=== PATIENT | male | born 1965 ===

== ENCOUNTER 2017-01-16 15:48 | Emergency (ER) | payer MEDICAID, OTHER ==
[2017-01-16 15:48] VITALS: BMI 25.4
[2017-01-16] MEDS ORDERED: Albuterol-Ipratrop 3 mg / 0.5 (3 ml) UD ONE ×3 (16:01→17:16)
[2017-01-16] MEDS ORDERED: Albuterol-Ipratrop 3 mg / 0.5 (3 ml) UD INH STA ×3 (16:25→17:02)
[2017-01-16] MEDS ORDERED: Sodium Chloride 0.9% 1,000 ML IV ONE (16:36)
--- NOTE | 2017-01-16 16:37 | C.PDOC ---
History Of Present Illness A 51 year old male presents to the ER c/o SOB, cough that started 3 weeks ago. Patient notes that the cough is intermittent and produces clear phleam. Patient also reports left sided abdominal pain and this is the first time reporting the pain. Patient denies fever, chills, chest pain, nausea, vomiting, or any other complaints. Time Seen by Provider: 01/16/17 16:03 Chief Complaint (Nursing): Shortness Of Breath History Per: Patient History/Exam Limitations: no limitations Onset/Duration Of Symptoms: Days Current Symptoms Are (Timing): Still Present Severity: Mild Past Medical History Vital Signs: Last Vital Signs Temp 98.2 F 01/16/17 16:09 Pulse 70 01/16/17 16:09 Resp 20 01/16/17 16:09 BP 119/79 01/16/17 16:09 Pulse Ox 99 01/16/17 16:09 - Medical History PMH: Asthma Family History: States: Unknown Family Hx - Social History Hx Tobacco Use: Yes Hx Alcohol Use: Yes Hx Substance Use: No - Immunization History Hx Tetanus Toxoid Vaccination: No Hx Influenza Vaccination: No Hx Pneumococcal Vaccination: No ED Course And Treatment O2 Sat by Pulse Oximetry: 99
--- NOTE | 2017-01-16 16:40 | C.PDOC ---
History Of Present Illness Patient is a 51 year old male presents to the ER c/o SOB, cough that started 3 weeks ago. Patient notes that the cough is intermittent and produces clear phlegm. Patient also reports left sided abdominal pain (LUQ) at times, but not right now. Patient denies fever, chills, chest pain, nausea, vomiting, or any other complaints. Pt has not tried any cough medicine for his symptoms. Pt does smoke cigarettes. Time Seen by Provider: 01/16/17 16:03 Chief Complaint (Nursing): Shortness Of Breath History Per: Patient History/Exam Limitations: language barrier (Gale Renee--interpretor #) Onset/Duration Of Symptoms: Days Current Symptoms Are (Timing): Still Present Initiating Event: Other (SOB) Severity: Mild Associated Symptoms: Productive Cough. denies: Fever, Chills Recent travel outside of the [place] States: No Additional History Per: Patient Past Medical History Reviewed: Historical Data, Nursing Documentation, Vital Signs Vital Signs: Last Vital Signs Temp 97.8 F 01/16/17 18:55 Pulse 82 01/16/17 18:55 Resp 19 01/16/17 18:55 BP 109/79 01/16/17 18:55 Pulse Ox 99 01/20/17 09:20 - Medical History PMH: Asthma Family History: States: Diabetes - Social History Hx Tobacco Use: Yes Hx Alcohol Use: Yes Hx Substance Use: No - Immunization History Hx Tetanus Toxoid Vaccination: No Hx Influenza Vaccination: No Hx Pneumococcal Vaccination: No Review Of Systems Except As Marked, All Systems Reviewed And Found Negative. Constitutional: Negative for: Fever, Chills Cardiovascular: Negative for: Chest Pain Respiratory: Positive for: Cough, Shortness of Breath Gastrointestinal: Positive for: Abdominal Pain. Negative for: Nausea, Vomiting Physical Exam - Physical Exam Appears: Non-toxic, No Acute Distress Skin: Warm, Dry Head: Atraumatic, Normacephalic Eye(s): bilateral: Normal Inspection, EOMI Ear(s): Bilateral: Normal Nose: Normal Oral Mucosa: Moist Tongue: Normal Appearing Lips: Normal Appearing Teeth: Normal Dentition Throat: Normal Neck: Normal Lymphatic: Deferred Chest: Symmetrical Cardiovascular: Rhythm Regular, No Murmur Respiratory: Wheezing (Bilateral expiratory whezing) Gastrointestinal/Abdominal: Bowel Sounds (Normal), Soft, No Tenderness, No Guarding, No Rebound Extremity: Normal ROM Extremity: Bilateral: Atraumatic, Normal ROM Neurological/Psych: Oriented x3, Normal Speech, Normal Cognition ED Course And Treatment - Laboratory Results Result Diagrams: 01/16/17 16:48 01/16/17 16:48 O2 Sat by Pulse Oximetry: 99 (Nebulizer treatment) Pulse Ox Interpretation: Normal Medical Decision Making Medical Decision Making: Impression: Asthma exacerbation Plans: -Albuterol -PredniSONE -IV fluids -Nebulizer treatment -UA -Reassess and disposition 5:30 PM On reassessment patient wheezing is starting to improve via nebulizer treatment. 6:30 PM Wheezing is gone. Pt feels much better. Disposition - Disposition Referrals: Douglas Murphy DO [Staff Provider] - Disposition: HOME/ ROUTINE Disposition Time: 18:29 Condition: GOOD Additional Instructions: Mr. Bourne, thank you for letting us take care of you today. Return to the ER if your symptoms worsen, or if any problems. Take the medication listed below as prescribed. Follow up with Dr. Douglas Murphy next week for a re-evaluation. Please quit smoking. Prescriptions: Albuterol HFA [Ventolin HFA 90 mcg/actuation (8 g)] 2 puff IH [id number] PRN #1 inhaler PRN Reason: Wheezing Fexofenadine HCl [EstefaniNf] 1 tab PO DAILY #14 tab Ketotifen Fumarate [Zaditor] 1 drop OU BID #5 ml Montelukast [Singulair] 1 tab PO DAILY #30 tab Prednisone [Deltasone] 1 tab PO Q8 #15 tablet Instructions: Asthma (ED), How to Stop Smoking (ED), Allergies (ED), Wheezing ( ED) Forms: Gen Discharge Inst Venezuelan, [facility] (Venezuelan) Print Language: SERBIAN - POA Present On Arrival: None - Clinical Impression Clinical Impression: Bronchitis, Asthma exacerbation, Seasonal allergies - Scribe Statement The provider has reviewed the documentation as recorded by the Scribe Rhiannon reyes All medical record entries made by the Scribe were at my direction and personally dictated by me. I have reviewed the chart and agree that the record accurately reflects my personal performance of the history, physical exam, medical decision making, and the department course for this patient. I have also personally directed, reviewed, and agree with the discharge instructions and disposition.
--- NOTE | 2017-01-16 16:52 | RAD ---
HISTORY: c/o cough and SOB COMPARISON: 12/06/2015 FINDINGS: LUNGS: No active pulmonary disease. PLEURA: No significant pleural effusion identified, no pneumothorax apparent. CARDIOVASCULAR: Normal. OSSEOUS STRUCTURES: Thoracic spondylosis VISUALIZED UPPER ABDOMEN: Normal. OTHER FINDINGS: None. IMPRESSION: No active disease. No interval change perceived
[2017-01-16] MEDS ORDERED: Sodium Chloride 0.9% 1,000 ML ONE (16:56)
[2017-01-16 16:59] LABS: POTASSIUM 4.3 mmol/L (3.6-5.2); SODIUM 137 mmol/L (132-148)
[2017-01-16 17:01] LABS: AST/SGOT 38 U/L (17-59); BILIRUBIN,TOTAL 0.6 mg/dL (0.2-1.3); CARBON DIOXIDE 28 mmol/L (22-30); GFR AFRICAN-AMERICAN > 60
[2017-01-16 17:02] LABS: ALB/GLOB RATIO 1.5 (1.0-2.1); ALKALINE PHOSPHATASE 64 U/L (38-126); ALT/SGPT 44 U/L (21-72); BLOOD UREA NITROGEN 18 mg/dL (9-20); CALCIUM 8.6 mg/dl (8.6-10.4); GLUCOSE,RANDOM 102 mg/dL (75-110); TOTAL PROTEIN 7.1 g/dL (6.3-8.3)
[2017-01-16 17:12] LABS: BASO # 0.1 K/uL (0.0-0.2); BASO % 0.9 % (0.0-2.0); EOS # 0.7 K/uL (0.0-0.7); EOS % 7.2 % (0.0-4.0); HEMATOCRIT 43.2 % (35.0-51.0); LYMPH # 3.1 K/uL (1.0-4.3); LYMPH % 33.5 % (20.0-40.0); MEAN CELL VOLUME 87.2 fL (80.0-94.0); MEAN CORPUSCULAR HEMOGLOBIN 29.1 pg (27.0-31.0); MEAN CORPUSCULAR HGB CONC 33.4 g/dL (33.0-37.0); MEAN PLATELET VOLUME 9.6 fL (7.2-11.7); MONO # 0.9 K/uL (0.0-0.8); MONO % 9.8 % (0.0-10.0); RED CELL DISTRIBUTION WIDTH 12.9 % (11.5-14.5); WHITE BLOOD COUNT 9.3 K/uL (4.8-10.8)
[2017-01-16 18:15] LABS: URINE BILIRUBIN NEGATIVE (NEGATIVE); URINE BLOOD NEGATIVE (NEGATIVE); URINE COLOR Yellow (YELLOW); URINE GLUCOSE (UA) NORMAL (Normal); URINE KETONE NEGATIVE (NEGATIVE); URINE LEUKOCYTE ESTERASE NEG Leu/uL (Negative); URINE PROTEIN NEGATIVE (NEGATIVE); URINE UROBILINOGEN NORMAL mg/dL (0.2-1.0); WBC URINE < 1 /hpf (0-5)
[2017-01-16 18:57] VITALS: BP 109/79; PULSE 82; RESP 19; TEMP 97.8
[2017-01-17 17:30] LABS: CHLORIDE 100 mmol/L (98-107)
[2017-01-20 09:20] VITALS: O2SAT 99
== END 2017-01-16 18:50 | disposition home or self-care (01) ==
LOC: C.ER 15:48
DX: J45.901 Unspecified asthma with (acute) exacerbation (principal)
CPT/HCPCS: 71010; 80053; 81001; 83690; 85025; 94150; 94640; 96374; 99285; J7040

== ENCOUNTER 2017-07-09 09:47 | Emergency (ER) | payer OTHER ==
[2017-07-09 09:48] VITALS: BMI 25.4
[2017-07-09 09:54] VITALS: RESP 20; TEMP 98; O2SAT 97
--- NOTE | 2017-07-09 10:20 | C.PDOC ---
History Of Present Illness 52 y/o male presents to ED with c/o itchy rash to whole body, worse on extremities, for about 3 weeks. Patient states he was recently living with a friend (> 1 month ago) and believes there may have been bedbugs. Notes he has been living in a new apartment for the last month. Notes using OTC anti- histamine w/ no relief. Patient denies sensation of throat closing up, chest pain, SOB, fever. Time Seen by Provider: 07/09/17 09:55 Chief Complaint (Nursing): Allergic Reaction History Per: Patient History/Exam Limitations: no limitations Onset/Duration Of Symptoms: Days Current Symptoms Are (Timing): Still Present Quality Of Symptoms: Itching. denies: Draining Severity: Moderate Recent travel outside of the [place]: No Past Medical History Reviewed: Historical Data, Nursing Documentation, Vital Signs Vital Signs: Last Vital Signs Temp 98 F 07/09/17 09:53 Pulse 88 07/09/17 10:25 Resp 20 07/09/17 09:53 BP 122/80 07/09/17 10:25 Pulse Ox 97 07/09/17 10:54 - Medical History PMH: Asthma Family History: States: Diabetes - Social History Hx Tobacco Use: Yes Hx Alcohol Use: Yes Hx Substance Use: No - Immunization History Hx Tetanus Toxoid Vaccination: No Hx Influenza Vaccination: No Hx Pneumococcal Vaccination: No Review Of Systems Except As Marked, All Systems Reviewed And Found Negative. Constitutional: Negative for: Fever, Chills ENT: Negative for: Throat Pain Respiratory: Negative for: Cough, Shortness of Breath Skin: Positive for: Rash Neurological: Negative for: Headache Physical Exam - Physical Exam Appears: Well, Non-toxic, Other (uncomfortable, actively scratching) Skin: Warm, Dry, Rash (scattered urticarial rash to extremities; maculopapular scattered rash, diffuse, nonvesicular, sparing palms and soles), Other (no burrows in interdigitary webs or anywhere else) Head: Normacephalic Oral Mucosa: Moist Tongue: Normal Appearing, No Swelling Lips: Normal Appearing, No Swelling Throat: Normal, No Erythema, No Exudate, No Drooling Cardiovascular: Rhythm Regular Respiratory: Normal Breath Sounds, No Rales, No Rhonchi, No Wheezing Extremity: Normal ROM Neurological/Psych: Oriented x3 ED Course And Treatment O2 Sat by Pulse Oximetry: 97 (RA) Pulse Ox Interpretation: Normal Progress Note: Patient given PO Prednisone, Benadryl in ED, as well as Rx for same + permethrin cream. Patient instructed to wash all linens in hot water. He was instructed to follow up with PMD /clinic in 1-2 days. He understands he should return to ED if symptoms worsen. Reevaluation Time: 10:20 Reassessment Condition: Improved Disposition Counseled Patient/Family Regarding: Studies Performed, Diagnosis, Need For Followup, Rx Given - Disposition Referrals: [facility] [Outside] Disposition: HOME/ ROUTINE Disposition Time: 10:20 Condition: STABLE Additional Instructions: SEGUIMIENTO CON GIL MDICO / CLNICA EN 1-2 BLAKELY USE MEDICAMENTOS SEGN LO INDICADO [place] REGRESE AL MAGALI DE EMERGENCIA SI LOS SNTOMAS EMPEORAN Prescriptions: DiphenhydrAMINE [Benadryl] 25 mg PO Q6 PRN #20 cap PRN Reason: Itching / Pruritus Permethrin 5% [Permethrin] 5 unit TP ONCE #1 tube predniSONE [predniSONE Tab] 40 mg PO DAILY #6 tab Instructions: Urticaria (ED) Forms: [employer] (Polish) Print Language: LITHUANIAN - POA Present On Arrival: None - Clinical Impression Clinical Impression: Allergic urticaria - Scribe Statement The provider has reviewed the documentation as recorded by the Scribe SM All medical record entries made by the Scribe were at my direction and personally dictated by me. I have reviewed the chart and agree that the record accurately reflects my personal performance of the history, physical exam, medical decision making, and the department course for this patient. I have also personally directed, reviewed, and agree with the discharge instructions and disposition.
[2017-07-09 10:27] VITALS: BP 122/80; PULSE 88
== END 2017-07-09 10:35 | disposition home or self-care (01) ==
LOC: C.ER 09:47 → SUPCPDRO 09:47 → C.ER 10:35
DX: L50.0 Allergic urticaria (principal)

== ENCOUNTER 2017-09-18 12:55 | Emergency (ER) | payer SELFPAY ==
[2017-09-18 12:55] VITALS: BMI 25.4
[2017-09-18 13:03] VITALS: PULSE 100; RESP 18; TEMP 97.6; O2SAT 96
[2017-09-18 13:05] VITALS: BP 121/75
--- NOTE | 2017-09-18 13:33 | C.PDOC ---
History Of Present Illness 52 yr old male presents to the ER with 2 day history of cough with yellow phlegm , sore throat, body aches, nausea, congestion and tactile fever. Patient denies taking any medication, sick contact, chest pain, SOB, vomiting, abdominal pain, neck pain, weakness or numbness. Time Seen by Provider: 09/18/17 13:06 Chief Complaint (Nursing): Flu-like Symptoms History Per: Patient History/Exam Limitations: no limitations Onset/Duration Of Symptoms: Days (2) Current Symptoms Are (Timing): Still Present Sick Contacts (Context): None Past Medical History Reviewed: Historical Data, Nursing Documentation, Vital Signs Vital Signs: Last Vital Signs Temp 97.6 F 09/18/17 12:58 Pulse 100 H 09/18/17 12:58 Resp 18 09/18/17 12:58 BP 121/75 09/18/17 12:58 Pulse Ox 96 09/18/17 13:33 - Medical History PMH: Asthma Family History: States: Diabetes - Social History Hx Tobacco Use: Yes Hx Alcohol Use: Yes Hx Substance Use: No - Immunization History Hx Tetanus Toxoid Vaccination: No Hx Influenza Vaccination: No Hx Pneumococcal Vaccination: No Review Of Systems Except As Marked, All Systems Reviewed And Found Negative. Constitutional: Positive for: Fever (tactile), Other ((+) body aches) ENT: Positive for: Nose Congestion, Throat Pain (sore throat) Respiratory: Positive for: Cough (yellow phlegm) Gastrointestinal: Positive for: Nausea. Negative for: Vomiting, Abdominal Pain Musculoskeletal: Negative for: Neck Pain Neurological: Negative for: Weakness, Numbness Physical Exam - Physical Exam Appears: Non-toxic, No Acute Distress Skin: Warm, Dry, No Rash Head: Atraumatic, Normacephalic Eye(s): bilateral: Normal Inspection, PERRL, EOMI Ear(s): Bilateral: Normal Oral Mucosa: Moist Throat: Erythema (tonsilar), Exudate (scant), Other ((+) bilateral hypertrophy) Neck: Normal, Normal ROM, Supple Lymphatic: Adenopathy (tender cervical adenopathy) Chest: Symmetrical, No Tenderness Cardiovascular: Rhythm Regular, No Murmur Respiratory: Normal Breath Sounds, No Rales, No Rhonchi, No Stridor, No Wheezing Extremity: Normal ROM, No Swelling Neurological/Psych: Oriented x3, Normal Speech, Normal Motor ED Course And Treatment O2 Sat by Pulse Oximetry: 96 (RA) Pulse Ox Interpretation: Normal Medical Decision Making Medical Decision Making: IMPRESSION: Pharyngitis/bronchitis PLAN: * Motrin PO * Zithromycin PO Disposition Counseled Patient/Family Regarding: Diagnosis, Need For Followup, Rx Given - Disposition Referrals: [facility] [Outside] Disposition: HOME/ ROUTINE Disposition Time: 13:39 Condition: STABLE Additional Instructions: follow up with medical clinic in 2 days call to make an appointment take medications as prescribed return to hospital if symptoms worsens or progress Prescriptions: Azithromycin [Zithromax] 250 mg PO DAILY #4 tab Hydrocodone/Chlorpheniramine [Tussionex] 5 ml PO QPM #80 ml Naproxen [Naprosyn] 500 mg PO BID PRN #16 tab PRN Reason: Pain, Moderate (4-7) Pseudoephedrine HCl [Sudafed] 30 mg PO QID PRN #12 tablet PRN Reason: Cough And Congestion Instructions: Pharyngitis (ED) Forms: Gen Discharge Inst Anguillan, [employer] (Anguillan) Print Language: MALTESE - Clinical Impression Clinical Impression: Pharyngitis, Bronchitis - Scribe Statement The provider has reviewed the documentation as recorded by the Rima Dwyer Provider Attestation: All medical record entries made by the Rima were at my direction and personally dictated by me. I have reviewed the chart and agree that the record accurately reflects my personal performance of the history, physical exam, medical decision making, and the department course for this patient. I have also personally directed, reviewed, and agree with the discharge instructions and disposition.
== END 2017-09-18 13:40 | disposition home or self-care (01) ==
LOC: C.ER 12:55
DX: J40 Bronchitis, not specified as acute or chronic (principal); J02.9 Acute pharyngitis, unspecified

== ENCOUNTER 2017-10-17 15:47 | Emergency (ER) | payer OTHER ==
[2017-10-17 15:48] VITALS: BMI 25.4
[2017-10-17 16:14] VITALS: BP 117/80; PULSE 76; RESP 18; TEMP 97.4; O2SAT 98
--- NOTE | 2017-10-17 16:30 | C.PDOC ---
History Of Present Illness NASAL CONGESTION, SOB EXAC AFTER DUST EXPOSURE AT WORK YEST. NO FEVER. DENIES HO ASTHMA. EXAM +SINUS LAWRENCE NO RHINORRHEA LUNGS CTA B/L NO W/R/R Time Seen by Provider: 10/17/17 16:20 Chief Complaint (Nursing): Cough, Cold, Congestion History Per: Patient History/Exam Limitations: no limitations Onset/Duration Of Symptoms: Days (1 day) Current Symptoms Are (Timing): Still Present Past Medical History Reviewed: Historical Data, Nursing Documentation, Vital Signs Vital Signs: Last Vital Signs Temp 97.4 F L 10/17/17 16:11 Pulse 76 10/17/17 16:11 Resp 18 10/17/17 16:11 BP 117/80 10/17/17 16:11 Pulse Ox 98 10/17/17 16:30 - Medical History PMH: Asthma Family History: States: Diabetes - Social History Hx Tobacco Use: Yes Hx Alcohol Use: Yes Hx Substance Use: No - Immunization History Hx Tetanus Toxoid Vaccination: No Hx Influenza Vaccination: No Hx Pneumococcal Vaccination: No Review Of Systems Except As Marked, All Systems Reviewed And Found Negative. Constitutional: Negative for: Fever ENT: Positive for: Nose Congestion Cardiovascular: Negative for: Chest Pain, Palpitations Respiratory: Positive for: Shortness of Breath Neurological: Negative for: Headache Physical Exam - Physical Exam Appears: Non-toxic, No Acute Distress Skin: Warm, Dry Eye(s): bilateral: Normal Inspection, PERRL, EOMI Ear(s): Bilateral: Normal Nose: Discharge (rhinorrhea), Other ((+) sinus congestion) Oral Mucosa: Moist Respiratory: Normal Breath Sounds, No Rales, No Rhonchi, No Stridor, No Wheezing Neurological/Psych: Oriented x3, Normal Speech ED Course And Treatment O2 Sat by Pulse Oximetry: 98 (RA) Pulse Ox Interpretation: Normal Disposition Counseled Patient/Family Regarding: Diagnosis, Need For Followup, Rx Given - Disposition Referrals: [facility] [Outside] [facility] [Outside] Disposition: HOME/ ROUTINE Disposition Time: 16:29 Condition: GOOD Prescriptions: Pseudoephedrine HCl [Sudafed 24 Hour] 240 mg PO DAILY PRN #1 unit PRN Reason: Sinus Symptoms Instructions: Sinusitis (ED) Forms: [employer] (Nepali) Print Language: NORTH KOREAN - Clinical Impression Clinical Impression: Sinusitis - Scribe Statement The provider has reviewed the documentation as recorded by the Scribe Janie Dwyer Provider Attestation: All medical record entries made by the Scribe were at my direction and personally dictated by me. I have reviewed the chart and agree that the record accurately reflects my personal performance of the history, physical exam, medical decision making, and the department course for this patient. I have also personally directed, reviewed, and agree with the discharge instructions and disposition.
== END 2017-10-17 16:49 | disposition home or self-care (01) ==
LOC: C.ER 15:47
DX: J32.9 Chronic sinusitis, unspecified (principal); F17.210 Nicotine dependence, cigarettes, uncomplicated

== ENCOUNTER 2018-01-20 08:27 | Emergency (ER) | payer OTHER ==
[2018-01-20 08:27] VITALS: BMI 25.4
[2018-01-20 08:46] VITALS: RESP 18; O2SAT 97
[2018-01-20] MEDS ORDERED: Albuterol 0.083% Inhal Sol (2.5 mg/3 mL) UD IH STA (09:27)
[2018-01-20] MEDS ORDERED: Albuterol-Ipratrop 3 mg / 0.5 (3 ml) UD INH STA (09:27)
[2018-01-20 09:50] LABS: BASO # 0.1 K/uL (0.0-0.2); BASO % 1.3 % (0.0-2.0); EOS # 0.6 K/uL (0.0-0.7); EOS % 7.5 % (0.0-4.0); HEMOGLOBIN 14.8 g/dL (12.0-18.0); LYMPH # 2.8 K/uL (1.0-4.3); LYMPH % 33.9 % (20.0-40.0); MEAN CELL VOLUME 85.9 fL (80.0-94.0); MEAN CORPUSCULAR HEMOGLOBIN 30.2 pg (27.0-31.0); MEAN CORPUSCULAR HGB CONC 35.2 g/dL (33.0-37.0); MEAN PLATELET VOLUME 9.2 fL (7.2-11.7); MONO # 0.9 K/uL (0.0-0.8); NEUT # 3.8 K/uL (1.8-7.0); NEUT % 46.3 % (50.0-75.0); NRBC % 0.1 % (0.0-2.0); RBC 4.88 Mil/uL (4.40-5.90); RED CELL DISTRIBUTION WIDTH 13.2 % (11.5-14.5); WHITE BLOOD COUNT 8.1 K/uL (4.8-10.8)
[2018-01-20] MEDS ORDERED: Albuterol-Ipratrop 3 mg / 0.5 (3 ml) UD ONE (09:53)
[2018-01-20 10:02] LABS: CALCIUM 8.8 mg/dl (8.6-10.4); GFR AFRICAN-AMERICAN > 60; GFR NON-AFRICAN AMERICAN > 60; LIPASE 156 U/L (23-300)
[2018-01-20 10:07] LABS: ALB/GLOB RATIO 1.4 (1.0-2.1); ALBUMIN 4.1 g/dL (3.5-5.0); ALT/SGPT 41 U/L (21-72); AST/SGOT 55 U/L (17-59); BLOOD UREA NITROGEN 13 mg/dL (9-20)
[2018-01-20 10:14] LABS: B-TYPE NATRIURETIC PEPTIDE 53.8 pg/mL (0-900); CK-MB 3.95 ng/mL (0.0-3.38)
[2018-01-20 10:47] LABS: URINE BILIRUBIN NEGATIVE (NEGATIVE); URINE BLOOD NEGATIVE (NEGATIVE); URINE CLARITY Clear (Clear); URINE COLOR Yellow (YELLOW); URINE GLUCOSE (UA) NORMAL (Normal); URINE LEUKOCYTE ESTERASE NEG Leu/uL (Negative); URINE PROTEIN NEGATIVE (NEGATIVE); URINE UROBILINOGEN NORMAL mg/dL (0.2-1.0)
--- NOTE | 2018-01-20 10:54 | RAD ---
PROCEDURE: CHEST RADIOGRAPH, 1 VIEW HISTORY: SOB COMPARISON: 01/16/2017 FINDINGS: LUNGS: Clear. PLEURA: No pneumothorax or pleural fluid seen. CARDIOVASCULAR: Normal. OSSEOUS STRUCTURES: No significant abnormalities. VISUALIZED UPPER ABDOMEN: Normal. OTHER FINDINGS: None. IMPRESSION: No active disease.
--- NOTE | 2018-01-20 11:54 | C.PDOC ---
History Of Present Illness 54-year-old female, presents to the emergency department with complaints of shortness of breath for the last several days, particularly with laying flat. Patient admits to a Hx of smoking and asthma. He denies chest pain, fever, abdominal pain, nausea/vomiting and diarrhea, but states his abdomen feels "swollen and inflamed." Time Seen by Provider: 01/20/18 08:59 Chief Complaint (Nursing): Shortness Of Breath History Per: Patient History/Exam Limitations: no limitations Past Medical History Reviewed: Historical Data, Nursing Documentation, Vital Signs Vital Signs: Last Vital Signs Temp 982 F H 01/20/18 12:15 Pulse 68 01/20/18 12:15 Resp 18 01/20/18 12:15 BP 115/78 01/20/18 12:15 Pulse Ox 97 01/20/18 12:33 - Medical History PMH: Asthma Family History: States: No Known Family Hx, Diabetes - Social History Hx Tobacco Use: Yes Hx Alcohol Use: No Hx Substance Use: No - Immunization History Hx Tetanus Toxoid Vaccination: No Hx Influenza Vaccination: No Hx Pneumococcal Vaccination: No Review Of Systems Constitutional: Negative for: Fever Respiratory: Positive for: Shortness of Breath (orthopnea), Pleuritic Pain Gastrointestinal: Negative for: Vomiting, Abdominal Pain Physical Exam - Physical Exam Appears: Non-toxic, No Acute Distress, Other (Speaking in full sentences) Skin: Normal Color, Warm, Dry, No Rash Head: Normacephalic Eye(s): bilateral: PERRL Nose: Normal Oral Mucosa: Moist Lips: Normal Appearing Neck: Normal ROM Cardiovascular: Rhythm Regular, No Murmur Respiratory: No Decreased Breath Sounds, No Accessory Muscle Use, No Rales, No Rhonchi, Wheezing (mild, expiratory) Gastrointestinal/Abdominal: Soft, No Tenderness, No Distention, No Guarding, No Rebound Extremity: Normal ROM, No Pedal Edema, No Deformity, No Swelling Neurological/Psych: Oriented x3, Normal Speech ED Course And Treatment - Laboratory Results Result Diagrams: 01/20/18 09:44 01/20/18 09:44 O2 Sat by Pulse Oximetry: 97 (RA) Pulse Ox Interpretation: Normal Disposition Counseled Patient/Family Regarding: Studies Performed, Diagnosis, Need For Followup, Rx Given - Disposition Referrals: [facility] [Outside] Disposition: HOME/ ROUTINE Disposition Time: 11:55 Condition: STABLE Additional Instructions: FOLLOW UP WITH YOUR DOCTOR/CLINIC IN 1-2 DAYS USE MEDICATION DIRECTED RETURN TO EMERGENCY ROOM IF SYMPTOMS WORSEN SEGUIMIENTO CON GIL MDICO / CLNICA EN 1-2 BLAKELY USE MEDICAMENTOS SEGN SE INDICA REGRESE AL MAGALI DE EMERGENCIA SI LOS SNTOMAS EMPEORAN Prescriptions: Albuterol Sulfate [Proair Respiclick] 90 mcg IH Q4 #1 aer.pow.[email or web address] predniSONE [predniSONE Tab] 40 mg PO DAILY #8 tab Instructions: Asthma, Adult (DC) Forms: [employer] (Kazakh) Print Language: ARMENIAN - Clinical Impression Clinical Impression: Bronchospasm, Cough - Scribe Statement The provider has reviewed the documentation as recorded by the Scribe (Claire Pabon) All medical record entries made by the Scribe were at my direction and personally dictated by me. I have reviewed the chart and agree that the record accurately reflects my personal performance of the history, physical exam, medical decision making, and the department course for this patient. I have also personally directed, reviewed, and agree with the discharge instructions and disposition.
[2018-01-20 12:28] VITALS: BP 115/78; PULSE 68; TEMP 982
--- NOTE | 2018-01-21 19:19 | CARD ---
APPROVED REPORT EKG Measurement Heart [id number] <Conclusion> Normal sinus rhythm Normal ECG
== END 2018-01-20 12:15 | disposition home or self-care (01) ==
LOC: C.ER 08:27
DX: J98.01 Acute bronchospasm (principal); R05 Cough; Z72.0 Tobacco use
CPT/HCPCS: 71045; 80053; 81001; 82550; 82553; 83690; 83880; 84484; 85025; 93005; 94640; 96374; 99284; J2930

== ENCOUNTER 2018-05-15 13:42 | Emergency (ER) | payer OTHER ==
[2018-05-15 13:42] VITALS: BMI 25.4
--- NOTE | 2018-05-15 14:33 | C.PDOC ---
History Of Present Illness 53 year old male presents to the ER with a complaint of nasal congestion for the past 3 days associated with occasional cough after inhaling cement dust while at work. Patient states he has been having difficulty breathing through his nose since then. Denies fever, sore throat, or sick contact. Time Seen by Provider: 05/15/18 14:00 Chief Complaint (Nursing): Cough, Cold, Congestion History Per: Patient History/Exam Limitations: no limitations Onset/Duration Of Symptoms: Days Current Symptoms Are (Timing): Still Present Associated Symptoms: Cough, Nasal Congestion. denies: Fever, Sore Throat Ear Symptoms: Bilateral: None Recent travel outside of the [place]: No Past Medical History Reviewed: Historical Data, Nursing Documentation, Vital Signs Vital Signs: Last Vital Signs Temp 98.6 F 05/15/18 15:40 Pulse 55 L 05/15/18 15:40 Resp 16 05/15/18 15:40 BP 104/64 05/15/18 15:40 Pulse Ox 98 05/15/18 15:40 - Medical History PMH: Asthma Family History: States: Diabetes - Social History Hx Tobacco Use: Yes Hx Alcohol Use: No Hx Substance Use: No - Immunization History Hx Tetanus Toxoid Vaccination: Yes Hx Influenza Vaccination: No Hx Pneumococcal Vaccination: No Review Of Systems Constitutional: Negative for: Fever, Chills ENT: Positive for: Nose Congestion. Negative for: Throat Pain Respiratory: Positive for: Cough Gastrointestinal: Negative for: Nausea, Vomiting Physical Exam - Physical Exam Appears: Non-toxic Skin: Normal Color, Warm, Dry Head: Atraumatic, Normacephalic Eye(s): bilateral: Normal Inspection Ear(s): Bilateral: Normal Nose: Normal Oral Mucosa: Moist Throat: Normal, No Erythema, No Exudate Chest: Symmetrical, No Tenderness Cardiovascular: Rhythm Regular Respiratory: Normal Breath Sounds, No Rales, No Rhonchi, No Wheezing Gastrointestinal/Abdominal: Soft, No Tenderness Neurological/Psych: Oriented x3, Normal Speech ED Course And Treatment O2 Sat by Pulse Oximetry: 97 (Room air) Pulse Ox Interpretation: Normal Medical Decision Making Medical Decision Making: CXR ordered, results were negative. Patient is resting comfortably in the ER in no acute distress, vitals are stable, will discharge home with Rx and instructions to follow up with PMD. Disposition - Disposition Referrals: [facility] [Outside] [facility]. [facility] [Outside] Disposition: HOME/ ROUTINE Disposition Time: 15:20 Condition: STABLE Additional Instructions: Follow up with the medical doctor within 1-2 days, return if worsened. Prescriptions: predniSONE [Prednisone] 20 mg PO BID #10 tab Sodium Chloride [[place] Baby Saline 30 ml] 1 drop BRENNAN Q4 #1 bottle Instructions: Upper Respiratory Infection (ED) Forms: [employer] (Guatemalan) Print Language: LEBANESE - POA Present On Arrival: None - Clinical Impression Clinical Impression: Pneumonopathy due to inhalation of dust - PA / CASE SUPERVISOR / Resident Statement MD/DO has reviewed & agrees with the documentation as recorded. - Scribe Statement The provider has reviewed the documentation as recorded by the Scribkarlie Faith All medical record entries made by the Seraibkarlie were at my direction and personally dictated by me. I have reviewed the chart and agree that the record accurately reflects my personal performance of the history, physical exam, medical decision making, and the department course for this patient. I have also personally directed, reviewed, and agree with the discharge instructions and disposition.
--- NOTE | 2018-05-15 14:55 | RAD ---
HISTORY: COMPARISON: 01/20/2018. TECHNIQUE: Chest PA and lateral FINDINGS: LINES AND TUBES: None. LUNG AND PLEURA: The lungs are well inflated. There is bibasilar scarring. No pleural effusion or pneumothorax. HEART AND MEDIASTINUM: The heart is not enlarged. There is mild dilatation of the ascending aorta. The hilar and mediastinal contours are within normal limits. SKELETAL STRUCTURES: The bony structures are within normal limits for the patient's age. VISUALIZED UPPER ABDOMEN: Normal. OTHER FINDINGS: None. IMPRESSION: No acute findings.
[2018-05-15 15:41] VITALS: BP 104/64; PULSE 55; RESP 16; TEMP 98.6
[2018-05-17 14:51] VITALS: O2SAT 97
== END 2018-05-15 15:53 | disposition home or self-care (01) ==
LOC: C.ER 13:42
DX: J98.4 Other disorders of lung (principal)

== ENCOUNTER 2018-09-23 14:10 | Emergency (ER) | payer SELFPAY ==
[2018-09-23 14:10] VITALS: BMI 25.4
[2018-09-23 14:24] VITALS: BP 122/74; PULSE 72; RESP 18; TEMP 97.9; O2SAT 97
[2018-09-23] MEDS ORDERED: Albuterol 0.083% Inhal Sol (2.5 mg/3 mL) UD IH STA (15:21)
[2018-09-23] MEDS ORDERED: Albuterol-Ipratrop 3 mg / 0.5 (3 ml) UD ONE (15:31)
--- NOTE | 2018-09-23 15:49 | C.PDOC ---
History Of Present Illness 53 year old male presents to the ED for evaluation of non-productive cough, nasal congestion, and sore throat which began one week ago. Patient denies fever, chills, chest pain, shortness of breath, nausea, vomiting and diarrhea. Time Seen by Provider: 09/23/18 14:48 Chief Complaint (Nursing): Cough, Cold, Congestion History Per: Patient History/Exam Limitations: no limitations Onset/Duration Of Symptoms: Other (one week) Current Symptoms Are (Timing): Still Present Associated Symptoms: Sore Throat, Cough, Nasal Congestion. denies: Fever, Chills, Sputum, Nausea, Vomiting, Diarrhea Additional History Per: Patient Past Medical History Reviewed: Historical Data, Nursing Documentation, Vital Signs Vital Signs: Last Vital Signs Temp 97.9 F 09/23/18 14:18 Pulse 72 09/23/18 14:18 Resp 18 09/23/18 14:18 BP 122/74 09/23/18 14:18 Pulse Ox 97 09/23/18 14:18 - Medical History PMH: Asthma Surgical History: No Surg Hx Family History: States: Diabetes - Social History Hx Tobacco Use: Yes Hx Alcohol Use: No Hx Substance Use: No - Immunization History Hx Tetanus Toxoid Vaccination: Yes Hx Influenza Vaccination: No Hx Pneumococcal Vaccination: No Review Of Systems Constitutional: Negative for: Fever, Chills ENT: Positive for: Nose Congestion, Throat Pain Respiratory: Positive for: Cough. Negative for: Sputum Physical Exam - Physical Exam Appears: Non-toxic, No Acute Distress Skin: Normal Color, Warm, Dry Head: Atraumatic, Normacephalic Eye(s): bilateral: Normal Inspection Ear(s): Bilateral: Normal Nose: Other (rhinorrhea ) Oral Mucosa: Moist Throat: Normal, No Erythema, No Exudate Neck: Supple Chest: Symmetrical, No Deformity, No Tenderness Cardiovascular: Rhythm Regular, No Murmur Respiratory: Normal Breath Sounds, No Rales, No Rhonchi, No Wheezing Gastrointestinal/Abdominal: Soft, No Tenderness, No Guarding, No Rebound Extremity: Normal ROM, Capillary Refill (less than 2 seconds ) Neurological/Psych: Oriented x3, Normal Speech, Normal Cognition ED Course And Treatment O2 Sat by Pulse Oximetry: 97 Pulse Ox Interpretation: Normal Progress Note: Albuterol INH, Sudafed PO, and Tessalon Perles PO given. On reassessment, patient is resting comfortably, showing no signs of distress and is stable for discharge. Patient will be given Rx for Sudafed, Tessalon Perles and albuterol inhaler. Disposition Counseled Patient/Family Regarding: Diagnosis, Need For Followup, Rx Given - Disposition Referrals: [facility] [Outside] Disposition: HOME/ ROUTINE Disposition Time: 15:50 Condition: STABLE Additional Instructions: FOLLOW UP WITH YOUR DOCTOR/CLINIC IN 1-2 DAYS USE MEDICATIONS NEEDED DRINK PLENTY OF FLUIDS AND GET REST RETURN TO EMERGENCY ROOM IF YOUR SYMPTOMS BECOME WORSE SEGUIR CON GIL MDICO / CLNICA EN 1-2 BLAKELY UTILICE MEDICAMENTOS SANTOS SE NECESITE NILES MUCHOS FLUIDOS Y DESCANSE VUELVA A LA MAGALI DE EMERGENCIA SI ASHLEY SNTOMAS SE HACEN PEOR Prescriptions: Albuterol HFA [Ventolin HFA 90 mcg/actuation (8 g)] 0.09 mg IH Q4 PRN #1 puff PRN Reason: Wheezing Benzonatate [Tessalon Perles] 100 mg PO BID PRN #15 sgl PRN Reason: Cough Pseudoephedrine [Sudafed] 60 mg PO Q6 PRN #12 tab PRN Reason: Nasal Congestion Instructions: Upper Respiratory Infection (ED) Forms: [employer] acquired by [employer] (Slovenian) Print Language: ALGERIAN - Clinical Impression Clinical Impression: Viral disease, Upper respiratory infection, Bronchospasm - Scribe Statement The provider has reviewed the documentation as recorded by the Scribe (Cadence Escobar) Provider Attestation: All medical record entries made by the Scribe were at my direction and personally dictated by me. I have reviewed the chart and agree that the record accurately reflects my personal performance of the history, physical exam, medical decision making, and the department course for this patient. I have also personally directed, reviewed, and agree with the discharge instructions and disposition.
== END 2018-09-23 16:03 | disposition home or self-care (01) ==
LOC: C.ER 14:10
DX: J06.9 Acute upper respiratory infection, unspecified (principal); J98.01 Acute bronchospasm; Z72.0 Tobacco use